=== PATIENT | male | born 1995 | race African-American/Black ===

== ENCOUNTER 2018-02-10 08:05 | Emergency (ER) | payer OTHER ==
[~2018-02-10] VITALS: Ht 170.2 cm; Wt 118.7 kg
[2018-02-10] MEDS ORDERED: DEXAMETHASONE 4 MG TABLET PO ONE (08:30)
[2018-02-10] MEDS ORDERED: DEXAMETHASONE 4 MG TABLET ONE (08:33)
[2018-02-10 08:50] VITALS: BP 135/80
== END 2018-02-10 08:52 | disposition home or self-care (01) ==
LOC: ED 08:43
DX: J02.0 Streptococcal pharyngitis (principal)
CPT/HCPCS: 99283

== ENCOUNTER 2018-06-04 12:27 | Emergency (ER) | payer OTHER ==
[~2018-06-04] VITALS: Ht 170.2 cm; Wt 125.2 kg
[2018-06-04 12:37] VITALS: BP 156/84
== END 2018-06-04 13:37 | disposition home or self-care (01) ==
LOC: ED 13:00
DX: K08.89 Other specified disorders of teeth and supporting structures (principal)
CPT/HCPCS: 99283

== ENCOUNTER 2019-11-06 14:10 | Emergency (ER) | payer OTHER ==
[~2019-11-06] VITALS: Ht 170.2 cm; Wt 121.6 kg
[2019-11-06 14:12] VITALS: BP 137/78
[2019-11-06] MEDS ORDERED: CARBAMIDE PEROXIDE EAR DROPS 6.5%, 15ML EACH EAR STA (14:22)
[2019-11-06] MEDS ORDERED: CARBAMIDE PEROXIDE EAR DROPS 6.5%, 15ML ONE (14:23)
--- NOTE | 2019-11-06 15:20 | NUR ---
Bilateral ears irrigated with warm water. min-mod debri returned. Provider made aware.
== END 2019-11-06 15:38 | disposition home or self-care (01) ==
LOC: ED 15:35
DX: H61.21 Impacted cerumen, right ear (principal); H69.83 Other specified disorders of Eustachian tube, bilateral; H92.02 Otalgia, left ear
CPT/HCPCS: 99283

== ENCOUNTER 2021-05-01 13:52 | Emergency (ER) | payer OTHER ==
[~2021-05-01] VITALS: Ht 170.2 cm; Wt 121.1 kg
[2021-05-01 14:45] LABS: BASOPHILS % (AUTO) 0 % (0-1); EOSINOPHILS % (AUTO) 2 % (1-7); LYMPHOCYTES % (AUTO) 31 % (22-44); MEAN CORPUSCULAR HEMOGLOBIN 25.6 pg (27.5-34.5); MEAN PLATELET VOLUME 7.5 fL (7.4-10.4); MONOCYTES % (AUTO) 8 % (2-9); NEUTROPHILS % (AUTO) 59 % (42-75); PLATELET COUNT 381 x10^3/uL (130-400); RED BLOOD COUNT 6.13 x10^6/uL (4.38-5.82); RED CELL DISTRIBUTION WIDTH 13.9 % (9.4-14.8)
[2021-05-01 14:57] LABS: ALANINE AMINOTRANSFERASE 41 U/L (12-78); ANION GAP 8 mmol/L (5-15); CALCIUM 9.4 mg/dL (8.5-10.1); CHLORIDE 106 mmol/L (98-107); CREATININE 0.97 mg/dL (0.7-1.3)
[2021-05-01 14:59] LABS: ALKALINE PHOSPHATASE 64 U/L (45-117); BILIRUBIN,TOTAL 0.3 mg/dL (0.2-1.0); TOTAL PROTEIN 9.3 g/dL (6.4-8.2)
[2021-05-01] MEDS ORDERED: SODIUM CHLORIDE FLUSH 10ML SYR IVF ONE (15:30)
--- NOTE | 2021-05-01 16:17 | NUR ---
PT TO ROOM FROM LOBBY
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
[2021-05-01 17:06] LABS: MICROSCOPIC INDICATED
--- NOTE | 2021-05-01 17:07 | NUR ---
ERMD AT BEDSIDE FOR EVALUATION.
[2021-05-01] MEDS ORDERED: HYDROmorphone 1 MG/ML, 1ML INJ ONE (17:23)
--- NOTE | 2021-05-01 17:27 | NUR ---
PATIENT BACK FROM IMAGING, MEDICATED PER eMAR, CONNECTED TO MONITOR, VSS, FAMILY AT BEDSIDE, CALL LIGHT WITHIN REACH, NO FURTHER NEEDS AT THIS TIME.
[2021-05-01] MEDS ORDERED: HYDROmorphone 1 MG/ML, 1ML INJ IV ONE (17:30)
[2021-05-01] MEDS ORDERED: OMNIPAQUE 350 MG/ML, 100ML BOTTLE ONE (17:32)
[2021-05-01 18:14] VITALS: BP 117/44
--- NOTE | 2021-05-01 18:24 | NUR ---
ERMD AT BEDSIDE TO DISCUSS POC.
--- NOTE | 2021-05-01 18:31 | NUR ---
IV removed with tip intact. Patient given discharge instructions and prescription and they have confirmed that they understand the instructions. Patient ambulatory with steady gait. NAD, all questions answered appropriately, denies additional needs at this time. No personal belongings left in room after discharge.
== END 2021-05-01 18:32 | disposition home or self-care (01) ==
LOC: ED 18:25
DX: G89.11 Acute pain due to trauma (principal); R10.84 Generalized abdominal pain; M54.6 Pain in thoracic spine; V49.49XA Driver injured in collision with other motor vehicles in traffic accident, initial encounter; Y93.89 Activity, other specified; Y92.410 Unspecified street and highway as the place of occurrence of the external cause; Y99.8 Other external cause status
CPT/HCPCS: 36415; 74177; 80053; 81001; 85025; 96374; 99285; J1170; Q9967

== ENCOUNTER → 2021-05-13 | Outpatient (CLI) | payer OTHER ==
[~2021-05-13] MED LIST: GADOTERATE 10 MMOL/20ML SYR ONE
== END | disposition home or self-care (01) ==
LOC: CFH 07:19
PROVIDERS: ATTEND Obstetrics & Gynecology
DX: M79.604 Pain in right leg (principal); R51.9 Headache, unspecified; M54.2 Cervicalgia
CPT/HCPCS: 70553; 72125; 73590; A9575